=== PATIENT | female | born 1955 | race African-American/Black ===

== ENCOUNTER 2019-08-05 13:26 | Outpatient (CLI) | payer OTHER ==
--- NOTE | 2019-08-05 15:35 | RAD ---
LUMBAR SPINE TWO VIEWS: 08/05/19 INDICATION: History of back surgery in July of 2019 with back pain. COMPARISON: Lumbar spinal radiographs of 10/19/09. FINDINGS: There is a right posterolateral spinal construct spanning L4-5. No acute osseous abnormality is evide nt. Bowel gas pattern is nonspecific without evidence of obstruction. There is some mild residual gra de I anterolisthesis of L4 on L5. Instrumentation projects in the expected position. Multilevel disc degenerative disease mildly progressed since 2014. IMPRESSION: Postoperative lumbar spine with mild to moderate spondylosis of the lumbar spine. POS: [facility]
== END 2019-08-05 13:27 | disposition home or self-care (01) ==
LOC: RAD 13:26
PROVIDERS: ATTEND Physician Assistant
DX: M51.36 Other intervertebral disc degeneration, lumbar region (principal); M47.816 Spondylosis without myelopathy or radiculopathy, lumbar region; Z98.890 Other specified postprocedural states
CPT/HCPCS: 72100

== ENCOUNTER 2019-09-29 13:35 | Outpatient (CLI) | payer OTHER ==
--- NOTE | 2019-09-29 14:27 | RAD ---
LUMBAR SPINE 2 VIEWS: HISTORY: Lumbar degenerative disk disease. Followup back surgery. COMPARISON: 08/05/2019. FINDINGS: Postop changes at L4-5 again noted. Pedicle screws on the right with interbody implant. No interval change noted. Slight posterior listhesis at L3-4 and L2-3. Loss of disk space at L5-S1 with spurri ng and facet hypertrophy. IMPRESSION: Degenerative and postoperative changes of the lumbar spine as noted. POS: [facility]
== END 2019-09-29 13:36 | disposition home or self-care (01) ==
LOC: TBSIIMAG 13:35
PROVIDERS: ATTEND Neurological Surgery
DX: M51.36 Other intervertebral disc degeneration, lumbar region (principal); Z98.890 Other specified postprocedural states
CPT/HCPCS: 72100

== ENCOUNTER 2021-05-09 07:05 | Day surgery (SDC) | payer MEDICARE ==
[2021-05-05 09:51] VITALS: BMI 51.0
[2021-05-09 08:42] VITALS: BP 145/76; TEMP 97.1
== END 2021-05-09 10:00 | disposition home or self-care (01) ==
LOC: RAD 07:05
PROVIDERS: ATTEND Neurological Surgery
PROC: B01B1ZZ Fluoroscopy of Spinal Cord using Low Osmolar Contrast (ICD-10-PCS; principal; 2021-05-09)
DX: M51.16 Intervertebral disc disorders with radiculopathy, lumbar region (principal); M47.26 Other spondylosis with radiculopathy, lumbar region; M43.16 Spondylolisthesis, lumbar region; M48.061 Spinal stenosis, lumbar region without neurogenic claudication; M25.78 Osteophyte, vertebrae; M47.817 Spondylosis without myelopathy or radiculopathy, lumbosacral region; M48.07 Spinal stenosis, lumbosacral region; I10 Essential (primary) hypertension; E78.00 Pure hypercholesterolemia, unspecified; M19.90 Unspecified osteoarthritis, unspecified site; Z79.82 Long term (current) use of aspirin; Z79.899 Other long term (current) drug therapy; Z88.8 Allergy status to other drugs, medicaments and biological substances; Z98.1 Arthrodesis status
CPT/HCPCS: 62304; 72132

== ENCOUNTER 2021-11-03 15:09 | Outpatient (CLI) | payer MEDICARE | END 2021-11-03 15:10 | disposition home or self-care (01) | LOC: BICMAMMO 15:09 | PROVIDERS: ATTEND Family Medicine | DX: Z12.31 Encounter for screening mammogram for malignant neoplasm of breast (principal); Z98.890 Other specified postprocedural states; Z80.3 Family history of malignant neoplasm of breast | CPT/HCPCS: 77063; 77067 ==

== ENCOUNTER 2022-01-30 14:09 | Outpatient (CLI) | payer MEDICARE | END 2022-01-30 14:10 | disposition home or self-care (01) | LOC: TBSIIMAG 14:09 | PROVIDERS: ATTEND Neurological Surgery | DX: M47.26 Other spondylosis with radiculopathy, lumbar region (principal); M51.16 Intervertebral disc disorders with radiculopathy, lumbar region; Z98.890 Other specified postprocedural states | CPT/HCPCS: 72120; 72148 ==